=== PATIENT | male | born 1980 | race Caucasian/White ===

== ENCOUNTER 2018-04-15 16:17 | Observation (INO) | payer SELFPAY ==
--- NOTE | 2018-04-15 17:07 | RAD ---
CHEST 1 VIEW: Date: 04/16/18 HISTORY: Chest pain. FINDINGS: No comparison. Cardiac silhouette is magnified by projection. Pulmonary vasculature unremarkable. Mediastinum is mid line. No confluent air space consolidation or evidence of pneumothorax. IMPRESSION: No active cardiopulmonary abnormalities demonstrated. POS: [facility]
[2018-04-15 17:08] LABS: Lavender RECEIVED; Red RECEIVED
[2018-04-15 17:17] LABS: #Eosinphils 0.1 thou/uL (0.0-0.7); #Lymphocytes 1.5 thou/uL (1.20-3.40); #Monocytes 0.6 thou/uL (0.11-0.59); #Neutrophils 3.5 thou/uL (1.40-6.50); %Basophils 0.4 % (0.0-1.0); %Eosinophils 0.9 % (0.0-10.0); %Lymphocytes 26.3 % (21.0-51.0); %Monocytes 10.3 % (0.0-10.0); %Neutrophils 62.1 % (42.0-75.0); Hemoglobin 13.7 g/dL (14.0-18.0); Mean Corpuscular HGB CONC 33.4 g/dL (32.0-36.0); Mean Corpuscular Hemoglobin 31.9 pg (27.0-31.0); Mean Corpuscular Volume 95.4 fL (78.0-98.0); Mean Platelet Volume 9.2 fL (7.4-10.4); Platelet Count 217 thou/uL (130-400); White Blood Cell (WBC) Count 5.6 thou/uL (4.8-10.8)
--- NOTE | 2018-04-15 17:26 | CT ---
BRAIN CT WITHOUT IV CONTRAST 04/15/18 HISTORY: Altered mental status. Possible seizure. No focal mass or midline shift. No intra or extra-axial hemorrhage. Fairly extensive mucosal changes noted within the sinuses including the maxillary, ethmoid and frontal sinuses. IMPRESSION: No acute intracranial process. No mass or bleed. Sinus mucosal disease. POS: [facility]
[2018-04-15 17:36] LABS: ALT (SGPT) 14 U/L (8-55); AST (SGOT) 13 U/L (5-34); Albumin 4.4 g/dL (3.5-5.0); Alkaline Phosphatase 62 U/L (40-150); Anion Gap 9 mmol/L (10-20); BUN (Urea Nitrogen) 9 mg/dL (8.9-20.6); Bilirubin, Total 0.8 mg/dL (0.2-1.2); Calc. Creatinine Clearance 0 mL/min (70-130); Calcium 9.3 mg/dL (7.8-10.44); Carbon Dioxide 28 mmol/L (22-29); Chloride 106 mmol/L (98-107); Estimated GFR-MDRD Greater than 90; Globulin 2.6 g/dL (2.4-3.5); Glucose 127 mg/dL (70-105); Potassium 3.7 mmol/L (3.5-5.1); Sodium 139 mmol/L (136-145)
[2018-04-15 18:01] LABS: Acetaminophen Less than 6.0 mcg/mL (10.0-30.0); Alcohol Less than 10 mg/dL (Less than 10); Salicylate Less than 8.0 mg/dL (15.0-30.0)
--- NOTE | 2018-04-15 18:18 | PDOC.FPRHP ---
- History of Present Illness Chief Complaint: Chest pain and AMS History of Present Illness: 37 yo M with PMH of drug and alcohol abuse (with seizures 2/2 alcohol withdrawal ), bipolar, anxiety and depression presents for AMS. Girl friend brought him home from work because he was acting altered, when she got him home she called EMS. Patient was reporting headache, chest pain, abdominal pain, and chronic diarrhea. Chest pain was left sided under pectoral muscle and reproducible. Girlfriend reported that the anniversary of his father's was yesterday, and patient may have taken something because of that. She reports that he has used marijuana and methamphetamine in the past. Patient denied drug use. In ED, patient was altered. Head CT neg, EKG wnl, Trop neg, CMP and CBC normal. 1 L NS given. Valproic acid < 12.5, tylenol and saline level were not elevated. TSH normal. - Allergies/Adverse Reactions Allergies Allergy/AdvReac Type Severity Reaction Status Date / Time No Known Drug Allergies Allergy Verified 04/16/18 01:22 - History PMHx: Bipolar, anxiety and depression; seizures while withdrawinng from alcohol PSHx: none FHx: father of [place] at age 59 yrs, cancer - "everybody" per patient Social: 20 PY smoking history, current every day smoker 1 ppd; patient denied drug or alcohol use. Girlfriend states he is a recovered alcoholic, and has used methamphetamine and marijuana in the past. - Review of Systems General: reports: other (headache). denies: fever/chills, weight/appetite/ sleep changes, night sweats Eyes: denies: eye pain, vision changes ENT: denies: nasal congestion, rhinorrhea Respiratory: denies: cough, congestion, shortness of breath, exercise intolerance Cardiovascular: reports: chest pain, palpitation Gastrointestinal: reports: nausea, diarrhea, abdominal pain. denies: vomiting, constipation, GI bleeding Genitourinary: denies: dysuria, other (denied hematuria) Skin: denies: rashes, lesions Neurological: denies: numbness, weakness Psychological: denies: anxiety, depression - Vital signs BP: [144/90] HR: [74] RR: [24] Tmax: [98.6] Pox: [98]% on [RA] Wt: [62 kg] - Physical Exam Constitutional: NAD, other (acting slightly confused, oriented to person and place) HEENT: normocephalic and atraumatic, PERRLA (Pupils dilated bilat, about 5 mm diameter), EOMI, conjunctiva clear, grossly normal hearing, MMM, oropharynx clear, other (denture in place (top)) Neck: supple, no LAD Chest: no lesions, other (tender to palpation under left breast, reproducible) Heart: RRR, normal S1/S2, no murmurs/rubs/gallops, pulses present, no edema Lungs: CTAB, no respiratory distress, good air movement, no wheezing Abdomen: soft, bowel sounds present, no masses/distention, other (slightly tender to palpation, slight guarding or rebound) Musculoskeletal: normal structure, normal tone, ROM grossly normal Neurological: no focal deficit, CN II-XII intact Skin: no rash/lesions, good turgor, capillary refill <2 seconds Heme/Lymphatic: no unusual bruising or bleeding, no purpura Psychiatric: other (acting strangely, kept making the statement "I'm not doing anything illegal"; poor insight and judgment) FMR H&P: Results - Labs Result Diagrams: 04/15/18 16:55 04/15/18 16:55 Lab results: WBC 5.6 thou/uL (4.8-10.8) 04/15/18 16:55 Hgb 13.7 g/dL (14.0-18.0) L 04/15/18 16:55 Hct 41.0 % (42.0-52.0) L 04/15/18 16:55 MCV 95.4 fL (78.0-98.0) 04/15/18 16:55 Plt Count 217 thou/uL (130-400) 04/15/18 16:55 Neutrophils % 62.1 % (42.0-75.0) 04/15/18 16:55 Sodium 139 mmol/L (136-145) 04/15/18 16:55 Potassium 3.7 mmol/L (3.5-5.1) 04/15/18 16:55 Chloride 106 mmol/L (98-107) 04/15/18 16:55 Carbon Dioxide 28 mmol/L (22-29) 04/15/18 16:55 BUN 9 mg/dL (8.9-20.6) 04/15/18 16:55 Creatinine 0.87 mg/dL (0.7-1.3) 04/15/18 16:55 Glucose 127 mg/dL (70-105) H 04/15/18 16:55 Calcium 9.3 mg/dL (7.8-10.44) 04/15/18 16:55 Total Bilirubin 0.8 mg/dL (0.2-1.2) 04/15/18 16:55 AST 13 U/L (5-34) 04/15/18 16:55 ALT 14 U/L (8-55) 04/15/18 16:55 Alkaline Phosphatase 62 U/L (40-150) 04/15/18 16:55 Serum Total Protein 7.0 g/dL (6.0-8.3) 04/15/18 16:55 Albumin 4.4 g/dL (3.5-5.0) 04/15/18 16:55 - EKG Interpretation EKG: EKG WNL - Radiology Interpretation CT scan - head Additional comment: WNL FMR H&P: A/P - Problem List (1) Acute encephalopathy Current Visit: Yes Status: Acute Code(s): G93.40 - ENCEPHALOPATHY, UNSPECIFIED (2) History of drug use Current Visit: Yes Status: Acute Code(s): Z87.898 - PERSONAL HISTORY OF OTHER SPECIFIED CONDITIONS (3) Chronic diarrhea Current Visit: Yes Status: Chronic Code(s): K52.9 - NONINFECTIVE GASTROENTERITIS AND COLITIS, UNSPECIFIED (4) Bipolar disorder Current Visit: Yes Status: Chronic Code(s): F31.9 - BIPOLAR DISORDER, UNSPECIFIED (5) History of seizure Current Visit: Yes Status: Chronic Code(s): Z87.898 - PERSONAL HISTORY OF OTHER SPECIFIED CONDITIONS (6) Anxiety Current Visit: Yes Status: Chronic Code(s): F41.9 - ANXIETY DISORDER, UNSPECIFIED (7) Depression Current Visit: Yes Status: Chronic Code(s): F32.9 - MAJOR DEPRESSIVE DISORDER, SINGLE EPISODE, UNSPECIFIED - Plan Acute encephalopathy -Drug use vs Seizure vs Metabolic derangement vs Other -UDS pending, patient refusing to leave urine sample -CT head neg, EKG neg, CBC and CMP WNL -Troponins neg -Tylenol/salicylate levels neg -TSH WNL Concern for drug abuse -Hx of meth and marijuana use per girlfriend -Anniversary of father's -UDS pending -HIV, Hep C, RPR pending Chronic Diarrhea -Stool studies pending -May require outpatient work up Bipolar disorder -Patient goes to [facility], reports taking seroquel, depakote, diazepam, prozac -Valproate level not therapeutic -Attempted to look up [employer] on patient, his name/ not in system Alcohol related seizures Anxiety Depression Code status: Patient Altered, full code; readdress when back to baseline Diet: Regular diet Dispo: Stroke obs FMR H&P: Upper Level - Pertinent history Raymond Wall is a 37 year old male who presents to the ED with a report of altered mental status. Per pt's significant other, pt was complaining of a migraine earlier today. Patient told a friend that he didnt feel good and that he was having chest pain. At some point patient became unarousable so his friend called EMS. Per pt's significant other, he has a prior history of alcohol abuse with alcohol related seizures as well as a history of polysubstance abuse. Last drink per patient was February 2018. - Pertinent findings General: alert and oriented. No distress at this time. Heart. Regular rate and rhythm with reproducible ttp over left anterior chest wall Lungs: clear to auscultation bilaterally. Neuro: CN II-XII intact grossly. No focal motor or sensory deficits. - Plan Date/Time: 04/15/181817 I, Leydi Frank, have evaluated this patient and agree with findings/plan as outlined by internal consultant resident. Pertinent changes/additions are listed here. Acute encephalopathy - infectious vs. toxic vs. seizure related. - unlikely infectious due to lack of WBC, fever/systemic signs. - unlikely seizure given negative CK and prolactin. - likely toxic/drug-related given past history and hesitancy giving urine sample. Seizure disorder - unsure of home meds. Prior history of drug abuse - UDS pending. Bipolar disorder - unsure of meds.
[2018-04-15 21:24] LABS: Syphilis Antibody Nonreactive (Nonreactive); Syphilis Antibody Index 0.04 S/CO (<1.00 Non-Reactive)
[2018-04-15] MEDS ORDERED: Acetaminophen 325 MG TAB PO PRN (21:28)
[2018-04-15] MEDS ORDERED: Acetaminophen 650 MG Suppository PR PRN (21:28)
[2018-04-15] MEDS ORDERED: diphenhydrAMINE 25 MG CAP PO SCH (21:30)
[2018-04-15] MEDS ORDERED: Metoclopramide HCl 10 MG TAB PO SCH (21:30)
[2018-04-15 21:55] VITALS: BMI 21.2
[2018-04-15 22:33] LABS: HIV (1/2) Antibody/Antigen Non-Reactive (NonReactive); HIV 1/2 INDEX 0.07 S/CO (<1.00); Hep C IgG Ab Non-Reactive (NonReactive); Hep C Index 0.07 S/CO (0-0.79)
[2018-04-16 05:29] LABS: Bilirubin Negative (Negative); Blood, Urine Negative (Negative); Clarity CLEAR (Clear); Glucose, Urine (Dipstick) Negative (Negative); Leukocyte Negative (Negative); Nitrite Negative (Negative); Protein, Urine (Dipstick) Negative (Neg-Trace); Specific Gravity, Urine 1.019 (1.002-1.036); pH, Urine 6.5 (5.0-9.0)
[2018-04-16 05:31] LABS: Bacteria/HPF None Seen HPF (None Seen); Hyaline Casts/LPF 0-3 HYALINE CAST LPF (0-3 Hyaline); Squamous Epithelial None Seen HPF (0-3); WBC/HPF 0-3 HPF (0-3)
[2018-04-16 06:05] LABS: Amphetamine Not Detected (NotDetected); Barbiturates Screen Not Detected (NotDetected); Benzodiazepine Screen Not Detected (NotDetected); Cocaine Metabolite Screen Not Detected (NotDetected); Medtox Control Line Valid? VALID (VALID); Medtox Reader # READER 4; Methadone Not Detected (NotDetected); Methamphetamine Not Detected (NotDetected); Opiate Screen Not Detected (NotDetected); Oxycodone Screen Not Detected (NotDetected); Phencyclidine (PCP) Detected (NotDetected); THC/Cannabinoid Screen Not Detected (NotDetected); Tricyclic Screen Not Detected (NotDetected)
--- NOTE | 2018-04-16 06:07 | PDOC.FM ---
- Subjective Subjective: NAEO. Patient alert and oriented x 3 this AM. Denies any chest pain or abdominal pain this AM. Just reports a terrible headache with blurry vision this AM and weakness. Says he just doesn't feel right. Is adamant he is not doing anything illegal like illegal drugs. - Objective MAR Reviewed: Yes Vital Signs & Weight: Vital Signs (12 hours) Temp Pulse Resp BP Pulse Ox 04/16/18 04:00 98.3 F 64 18 124/81 97 04/16/18 00:00 97.4 F L 75 18 141/78 H 98 04/15/18 20:25 99.8 F H 75 18 141/81 H 99 Weight Weight 63.412 kg Result Diagrams: 04/15/18 16:55 04/15/18 16:55 Phys Exam - Physical Examination Constitutional: NAD HEENT: moist MMs, sclera anicteric Neck: supple, full ROM Respiratory: no wheezing, no rales, no rhonchi, clear to auscultation bilateral Cardiovascular: RRR, no significant murmur Gastrointestinal: positive bowel sounds Musculoskeletal: no edema Neurological: non-focal, normal sensation, moves all 4 limbs Psychiatric: normal affect, A&O x 3 Skin: no rash, normal turgor Dx/Plan (1) Acute encephalopathy Code(s): G93.40 - ENCEPHALOPATHY, UNSPECIFIED Status: Acute (2) History of drug use Code(s): Z87.898 - PERSONAL HISTORY OF OTHER SPECIFIED CONDITIONS Status: Acute (3) Anxiety Code(s): F41.9 - ANXIETY DISORDER, UNSPECIFIED Status: Chronic (4) Bipolar disorder Code(s): F31.9 - BIPOLAR DISORDER, UNSPECIFIED Status: Chronic (5) Chronic diarrhea Code(s): K52.9 - NONINFECTIVE GASTROENTERITIS AND COLITIS, UNSPECIFIED Status : Chronic (6) Depression Code(s): F32.9 - MAJOR DEPRESSIVE DISORDER, SINGLE EPISODE, UNSPECIFIED Status : Chronic (7) History of seizure Code(s): Z87.898 - PERSONAL HISTORY OF OTHER SPECIFIED CONDITIONS Status: Chronic - Plan Plan: Acute encephalopathy -UDS + for PCP; however, valproate level was also low so could have had a seizure in addition to withdrawal from PCP. However, prolactin WNLs so seizure less likely. Like all related to acute drug intoxication and/or withdrawal. -No concern for any life threatening condition as CT head neg, EKG neg, & CBC and CMP WNLs -Tylenol/salicylate levels neg & TSH WNLs as well. Concern for drug abuse, confirmed -UDS + for PCP -HIV, Hep C, & RPR negative Chronic Diarrhea -Stool studies pending -May require outpatient work up Bipolar disorder -Patient goes to [facility], reports taking seroquel, depakote, diazepam, prozac -Valproate level not therapeutic -Attempted to look up [employer] on patient but his name/ not in system Alcohol related seizures - Aware, ASE protocol in place. - Will continue to monitor vitals closely. Anxiety & Depression - Aware, will resume home meds once confirmed. Code status: FULL CODE Diet: Regular diet Dispo: D/c home on reconciled home meds confirmed with patient's pharmacy. IVFs: None Abx: None DVT PPx: None GI PPx: None
[2018-04-16 06:25] LABS: Magnesium 2.4 mg/dL (1.6-2.6); Phosphorus 3.3 mg/dL (2.3-4.7)
[2018-04-16 08:13] VITALS: BP 121/71; TEMP 99.1
[2018-04-16] MEDS ORDERED: Ibuprofen 800 MG TAB PO SCH (09:15)
--- NOTE | 2018-04-18 08:31 | HP ---
ADDENDUM: Please see note from Dr. Rosado, for which I agree and the history and physical from Dr. Adrian, for which I agree. The patient was seen, evaluated, and examined with the residents by bedside. HISTORY OF PRESENT ILLNESS: Came in with altered mental status last night. Known history of seizures, but sounds like only with alcohol withdrawal. Known psychiatric issues on multiple drugs including valproic acid, although level was extremely low today. Base was found altered. Urine drug screen eventually showed PCP and then overnight he improved, seems to be back to baseline and the rest of the workup has been completely normal. PAST MEDICAL HISTORY: Per the history and physical, for which I agree. PAST SURGICAL HISTORY: Per the history and physical, for which I agree. FAMILY HISTORY: Per the history and physical, for which I agree. SOCIAL HISTORY: Per the history and physical, for which I agree. REVIEW OF SYSTEMS: Per the history and physical, for which I agree. MEDICATIONS: Per the history and physical, for which I agree. PHYSICAL EXAMINATION: GENERAL: Alert and oriented x3. No apparent distress. HEENT: Within normal limits. NECK: No lymphadenopathy or thyromegaly. CHEST: Clear. CARDIAC: Regular rate and rhythm. NEURO: Normal. DIAGNOSTIC STUDIES: Labs and CT reviewed, everything is normal. ASSESSMENT AND PLAN: Altered mental status, likely from PCP. I guess there is a chance that he could have had a seizure and was postictal. It was not witnessed. It does not sound like it is a seizure disorder, just withdrawal seizures in the past. It sounds like he is on Depakote for psych reasons and seizure reasons, although I did warn him noncompliance and stopping that medicine can actually induce the seizures, so advised him to be compliant on all his home medications and follow up with primary care and the doctors at [facility]. Job ID: [id number]
--- NOTE | 2018-04-18 14:08 | DIS ---
DATE OF ADMISSION: 04/15/2018 DATE OF DISCHARGE: 04/16/2018 RESIDENT: Mari Rosado MD ADMITTING ATTENDING: Janene Chinchilla MD. DISCHARGE ATTENDING: Raimundo Castillo MD. CONSULTS: None. PROCEDURES: 1. Brain CT on 04/15/2018, which showed no acute intracranial process. No mass or bleed. Sinus mucosal disease. 2. Chest x-ray on 04/15/2018, which showed no active cardiopulmonary abnormalities. DISCHARGE MEDICATIONS: 1. Acetaminophen 650 mg p.o. every 4 hours p.r.n. for pain. 2. Depakote 500 mg p.o. b.i.d. 3. Doxepin HCL 1-2 capsules p.o. at bedtime. 4. Fluoxetine 20 mg p.o. daily. DISCONTINUED MEDICATIONS: None. HOSPITAL COURSE: The patient is a 37-year-old gentleman with past medical history significant for drug and alcohol abuse, bipolar disorder, anxiety and depression who was brought in via EMS due to altered mental status. The patient was significantly altered on presentation and the history was therefore obtained from the patient's girlfriend who called the ambulance upon the patient's return home from work due to him reportedly "acting altered." The girlfriend reported that the patient had a history of marijuana and methamphetamine use in the past and stated it was the anniversary of the patient's father's the day prior to presentation. However, the patient denied any drug use on presentation. On presentation to the ED, the patient's vitals were noted to be within normal limits with the exception of an elevated blood pressure of 161/107. Imaging including a brain CT and chest x -ray was obtained, both of which were within normal limits. Routine lab work was obtained including a CBC, CMP, UA, urine drug screen, and serology for syphilis, hepatitis C, and HIV. In addition, due to the patient's reported seizure secondary to alcohol withdrawal, a prolactin level was obtained. Electrolytes including magnesium and phosphorus levels and a CK level were also obtained. All of the patient's lab work was within normal limits, pending a urine drug screen as the patient initially refused to leave any urine sample for testing. The patient was therefore monitored closely on observation overnight. The following morning, a urine specimen was obtained, which detected a high level of PCP. This was therefore determined to be the only and most likely cause of the patient's altered mental status and upon noting that the patient was A and O x3 the following morning, he was cleared for discharge home with instructions to follow up with his primary care physician within one week of discharge. CONDITION: Stable. DISCHARGE INSTRUCTIONS: 1. Location: Home. 2. Diet: Regular diet. 3. Activity: Activity as tolerated. 4. Followup: The patient was instructed to follow up with his primary care provider, Dr. Víctor Wall within one week of discharge. Job ID: [id number] MTDD
--- NOTE | 2018-04-23 19:24 | EKG ---
Test Reason : AMS Blood Pressure : / mmHG Vent. Rate : 085 BPM Atrial Rate : 085 BPM P-R Int : 142 ms QRS Dur : 080 ms QT Int : 368 ms P-R-T Axes : 073 058 052 degrees QTc Int : 437 ms Normal sinus rhythm Normal ECG Confirmed by WILFREDO PATEL DO ([id number]), index editor HUMPHREY ZENG ([id number] on 04/23/2018 7:23:41 PM Referred By: Confirmed By:WILFREDO PATEL DO
== END 2018-04-16 12:16 | disposition home or self-care (01) ==
LOC: ERS 16:17 → 2SE 17:50
PROVIDERS: ADMIT Family Medicine; ATTEND Family Medicine
DX: G93.40 Encephalopathy, unspecified (principal); F10.10 Alcohol abuse, uncomplicated; F31.9 Bipolar disorder, unspecified; F41.9 Anxiety disorder, unspecified; G40.509 Epileptic seizures related to external causes, not intractable, without status epilepticus; F17.210 Nicotine dependence, cigarettes, uncomplicated; K52.9 Noninfective gastroenteritis and colitis, unspecified; Z79.899 Other long term (current) drug therapy
CPT/HCPCS: 36415; 70450; 71045; 80053; 80164; 80306; 80307; 81001; 82550; 83735; 84100; 84146; 84443; 85025; 86780; 86803; 87389; 90471; 90686; 90732; 93005; 96360; 96361; G0008; G0009; G0378; J8597; Q0163